=== PATIENT | female | born 1970 | race Caucasian/White ===

== ENCOUNTER 2018-01-25 17:29 | Inpatient (IN) | payer BC ==
[2018-01-25] MEDS ORDERED: MORPHINE 4 MG/ML SYR ONE (17:56)
[2018-01-25] MEDS ORDERED: ONDANSETRON 4 MG/2 ML VIAL ONE (17:56)
[2018-01-25] MEDS ORDERED: TETANUS & DIPHTHERIA TOX,ADULT 0.5 ML VIAL ONE (18:04)
[2018-01-25] MEDS ORDERED: CEFTRIAXONE/SWI 1gm 1 GM/10 ML SYR ONE (18:05)
[2018-01-25] MEDS ORDERED: MORPHINE 10 MG/ML VIAL ONE ×2 (18:10→18:42)
--- NOTE | 2018-01-25 18:12 | P.HP ---
Certification for Inpatient Patient admitted to: Inpatient With expected LOS: >2 Midnights Patient will require the following post-hospital care: None Practitioner: I am a practitioner with admitting privileges, knowledge of patient current condition, hospital course, and medical plan of care. Services: Services provided to patient in accordance with Admission requirements found in Title 42 Section 412.3 of the Code of Federal Regulations Patient History Date of Service: 01/25/18 Primary Care Provider: Dr. Berman; CULINARY INTERN-Dr. Parada Reason for admission: Right hand injury History of Present Illness: 47-year-old female presented emergency room with the right hand injury. The patient was working on a project at home utilizing would, glass and the table saw. An accident occurred causing major cuts to the right hand. Injury to the right thumb index middle finger and ring finger were noted. Multiple areas of skin were cut that different angles with differently years. Patient came to the emergency room for evaluation. The patient was evaluated in the emergency room. Due to the severity her injury plastic surgery was consulted. Plastic surgery plans to take the patient to the OR to irrigate and debride the multiple wounds along with closure. Surgery is planned for tomorrow. Plastic surgery recommended the patient be admitted by the hospitalist service. The patient has no prior medical condition. 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 She is currently being treated for this. Otherwise she takes no other medications. Allergies codeine Allergy (Verified 09/16/17 06:48) Anaphylaxis Home medications list reviewed: Yes Home Medications: Phentermine HCl 37.5 mg PO DAILY 08/07/17 - Past Medical/Surgical History Diabetic: Yes -: Precancer cells the bladder -: Hysterectomy Psychosocial/ Personal History: The patient is . She has several children. - Family History Family History: Reviewed- Non-Contributory - Social History Smoking Status: Never smoker Alcohol use: Yes CD- Drugs: No Caffeine use: Yes Place of Residence: Home Review of Systems General: As per HPI Eyes: Unremarkable ENT: Unremarkable Respiratory: Unremarkable Cardiovascular: Unremarkable Genitourinary: Unremarkable Musculoskeletal: As per HPI Integumentary: As per HPI Neurological: Unremarkable Lymphatics: Unremarkable Physical Examination - Physical Exam General: Alert, In no apparent distress, Oriented x3, Cooperative HEENT: Atraumatic, Normocephalic, PERRLA, Mucous membr. moist/pink Neck: Supple, No Thyromegaly Respiratory: Clear to auscultation bilaterally, Normal air movement Cardiovascular: Normal pulses, Regular rate/rhythm Gastrointestinal: Normal bowel sounds, Soft and benign, Non-distended, No tenderness, No masses, No rebound, No guarding Musculoskeletal: Other (Multiple lacerations noted to the right hand. Including the thumb, index, middle, and ring finger. Lacerations are at different angles and depth. 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 Will start IV antibiotic therapy. Will provide medication for pain. Await further recommendations from plastic surgery. Case discussed with ER physician who has spoken to plastic surgery. Patient will require irrigation and debridement of wounds along with closures. Qualifiers: Encounter type: initial encounter Qualified Code(s): S69.91XA - Unspecified injury of right wrist, hand and finger(s), initial encounter (2) Laceration of right hand with complication Current Visit: Yes Status: Acute Plan: As above Qualifiers: Encounter type: initial encounter Qualified Code(s): S61.411A - Laceration without foreign body of right hand, initial encounter Discharge Plan: Home Plan to discharge in: Greater than 2 days - Advance Directives Does patient have a Living Will: No Does patient have a Durable POA for Healthcare: No - Code Status/Comfort Care Code Status Assessed: Yes Time Spent Managing Pts Care (In Minutes): 55
--- NOTE | 2018-01-25 18:31 | EDPHYS ---
Physician Documentation [facility] Name: Nazia Alva Age: 47 yrs Sex: Female : 1970 Arrival Date: 01/25/2018 Time: 17:32 Bed 4 Private MD: ED Physician Dandy Perales HPI: 01/25 18:10 This 47 yrs old Female presents to ER via Ambulatory with complaints of gs Laceration To Hand. 18:10 The patient has a laceration related to: doing carpentry, from a power saw, occurred at home, and The type of wound is a puncture. The laceration(s) is(are) located on the right hand and dorsal aspect of middle phalanx of right ring finger and dorsal aspect of proximal phalanx of right middle finger and dorsal aspect of middle phalanx of right middle finger and dorsal aspect of middle phalanx of right index finger and dorsal aspect of distal phalanx of right thumb. Onset: The symptoms/episode began/occurred acutely, just prior to arrival. Associated signs and symptoms: Pertinent positives: deformity. The patient has not experienced similar symptoms in the past. The patient has not recently seen a physician. 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 - Social history:: Smoking status: Patient/guardian denies using tobacco. ROS: 18:10 All other systems are negative. gs Exam: 18:10 ENT: Nares patent. No nasal discharge, no septal abnormalities noted. Tympanic gs membranes are normal and external auditory canals are clear. Oropharynx with no redness, swelling, or masses, exudates, or evidence of obstruction, uvula midline. Mucous membranes moist. Cardiovascular: Regular rate and rhythm with a normal S1 and S2. No gallops, murmurs, or rubs. Normal PMI, no JVD. No pulse deficits. Respiratory: Lungs have equal breath sounds bilaterally, clear to auscultation and percussion. No rales, rhonchi or wheezes noted. No increased work of breathing, no retractions or nasal flaring. Abdomen/GI: Soft, non-tender, with normal bowel sounds. No distension or tympany. No guarding or rebound. No evidence of tenderness throughout. Back: No spinal tenderness. No costovertebral tenderness. Full range of motion. Neuro: Awake and alert, GCS 15, oriented to person, place, time, and situation. Cranial nerves II-XII grossly intact. Motor strength 5/5 in all extremities. Sensory grossly intact. Cerebellar exam normal. Normal gait. 18:10 Constitutional: The patient appears alert, awake. 18:17 Constitutional: The patient appears in obvious distress, severely distressed. gs 18:17 Musculoskeletal/extremity: ROM: limited active range of motion, limited passive range of motion, Pulses: are normal with no appreciated deficits, Sensation intact. 18:17 Skin: injury, laceration(s), multiple laceration 1-5 digits, thumb has large distal phalanx lacerations on flexor surface 2-5 extending to and through flexor tendons on those digits. Vital Signs: 17:33 BP 131 / 72; Pulse 87; Resp 18; Pulse Ox 100% on R/A; Weight 79.38 kg (R); Height 5 ft. lk1 10 in. (177.80 cm) (R); Pain 7/10; 18:18 BP 122 / 89; Pulse 88; Resp 17; Pulse Ox 100% on R/A; Pain 7/10; hb 18:33 BP 125 / 81; Pulse 97; Resp 26; Pulse Ox 100% on R/A; Pain 10/10; aj 18:51 BP 125 / 81; Pulse 91; Resp 22; Pulse Ox 100% on R/A; aj 17:33 Body Mass Index 25.11 (79.38 kg, 177.80 cm) lk1 MDM: 17:41 Patient medically screened. gs 18:17 Differential diagnosis: superficial laceration, tendon injury, vascular injury, gs fracture. Data reviewed: vital signs, nurses notes. Response to treatment: the patient's symptoms have mildly improved after treatment. Physician consultation: Alejandro Pate MD regarding consult, patient's condition, exact description of injuries and xray findings, and will see patient in inpatient room. 01/25 17:43 Order name: Hand Right 3 View XRAY; Complete Time: 18:43 01/25 18:34 Order name: CONS Physician Consult EDMS Administered Medications: 17:39 Drug: morphine 4 mg Route: IVP; Site: left antecubital; hb 18:46 Follow up: Response: Pain is unchanged, physician notified aj 17:40 Drug: Zofran 4 mg Route: IVP; Site: left antecubital; hb 18:46 Follow up: Response: No adverse reaction aj 17:50 Drug: Rocephin - (cefTRIAXone) 1 grams Route: IVPB; Infused Over: 30 mins; Site: left aj forearm; 18:47 Follow up: Response: No adverse reaction; IV Status: Completed infusion; IV Intake: 10mlaj 17:53 Drug: Tetanus-Diphtheria Toxoid Adult 0.5 ml {Food Safety Manager: [employer]. Exp: aj 03/04/2020. Lot #: [id number]. } Route: IM; Site: left deltoid; 18:47 Follow up: Response: No adverse reaction aj 17:54 Drug: morphine 8 mg Route: IVP; Site: left forearm; aj 18:48 Follow up: Response: Pain is unchanged, physician notified aj 18:20 Drug: morphine 8 mg Route: IVP; Site: left forearm; aj 18:48 Follow up: Response: Pain is unchanged, physician notified aj 18:34 Drug: TORadol 30 mg Route: IVP; Site: left antecubital; hb 18:48 Follow up: Response: Pain is unchanged, physician notified aj 18:46 Drug: fentaNYL (PF) 100 mcg Route: IVP; Site: left forearm; aj Disposition: 01/25/18 18:31 Hospitalization ordered by Brenden Askew for Inpatient Admission. Preliminary diagnosis are Displaced fracture of distal phalanx of right thumb, Laceration of flexor muscle, fascia and tendon of right middle finger at wrist and hand level, Laceration of intrinsic muscle, fascia and tendon of right index finger at wrist and hand level, Laceration of flexor muscle, fascia and tendon of right ring finger at wrist and hand level. - Bed requested for Telemetry/MedSurg (Inpatient). - Status is Inpatient Admission. fc - Condition is Stable. - Problem is new. - Symptoms are unchanged. UTI on Admission? No Signatures: Dispatcher [employer] Odilia Sotelo RN RN dw Myers, Amanda, RN RN aj Chretien, Felicia, RN RN Tierra King RN RN lk1 Jess Messina, RN RN hb Dandy Perales MD MD gs
--- NOTE | 2018-01-25 18:31 | ER ---
Nurse's Notes [facility] Name: Nazia Alva Age: 47 yrs Sex: Female : 1970 Arrival Date: 01/25/2018 Time: 17:32 Bed 4 Private MD: Diagnosis: Displaced fracture of distal phalanx of right thumb;Laceration of flexor muscle, fascia and tendon of right middle finger at wrist and hand level;Laceration of intrinsic muscle, fascia and tendon of right index finger at wrist and hand level;Laceration of flexor muscle, fascia and tendon of right ring finger at wrist and hand level Presentation: 01/25 17:32 Presenting complaint: Patient states: I ran my hand (right) into a table saw. lk1 Transition of care: patient was not received from another setting of care. Complicating Factors: There are no complicating factors for this patient. Onset of symptoms was January 25, 2018 at 17:00. Care prior to arrival: None. 17:32 Method Of Arrival: Ambulatory lk1 17:32 Acuity: DIPIKA 2 lk1 Triage Assessment: 17:33 General: Appears uncomfortable, Behavior is calm, cooperative, appropriate for age. lk1 Pain: Complains of pain in right hand Pain currently is 7 out of 10 on a pain scale. Injury Description: Laceration sustained to dorsal aspect of distal phalanx of right thumb, dorsal aspect of middle phalanx of right index finger, dorsal aspect of middle phalanx of right middle finger, dorsal aspect of proximal phalanx of right middle finger and dorsal aspect of middle phalanx of right ring finger is jagged, bleeding moderately. HAIR SPINNER: 17:33 LMP N/A - Hysterectomy lk1 Historical: - Allergies: 17:33 Codeine; lk1 - PMHx: 17:33 None; lk1 - PSHx: 17:33 Tubal ligation; Hysterectomy; lk1 - Immunization history:: Adult Immunizations up to date, Last tetanus immunization: unknown. - Social history:: Smoking status: Patient/guardian denies using tobacco. Screenin:40 Abuse screen: Denies threats or abuse. Denies injuries from another. Nutritional hb screening: No deficits noted. Tuberculosis screening: No symptoms or risk factors identified. Fall Risk None identified. Assessment: 18:33 General: Appears distressed, uncomfortable, Behavior is calm, cooperative, appropriate aj for age. Pain: Complains of pain in dorsal aspect of middle phalanx of right ring finger and dorsal aspect of proximal phalanx of right middle finger and dorsal aspect of middle phalanx of right middle finger and dorsal aspect of middle phalanx of right index finger and dorsal aspect of distal phalanx of right thumb Pain currently is 10 out of 10 on a pain scale. Neuro: Level of Consciousness is awake, alert, obeys commands, Oriented to person, place, time, situation. Respiratory: Airway is patent Respiratory effort is even, unlabored, Respiratory pattern is regular, symmetrical. Derm: Skin is intact, is healthy with good turgor, Skin is pink, warm \T\ dry. normal. Musculoskeletal: Reports pain in right hand. Injury Description: Avulsion sustained to palmar aspect of distal phalanx of right thumb and dorsal aspect of middle phalanx of right ring finger and dorsal aspect of proximal phalanx of right middle finger and dorsal aspect of middle phalanx of right middle finger and dorsal aspect of middle phalanx of right index finger and dorsal aspect of distal phalanx of right thumb. 19:41 Reassessment: No changes from previously documented assessment. Patient is alert, bb oriented x 3, equal unlabored respirations, skin warm/dry/pink. IV site intact. Vital Signs: 17:33 BP 131 / 72; Pulse 87; Resp 18; Pulse Ox 100% on R/A; Weight 79.38 kg (R); Height 5 ft. lk1 10 in. (177.80 cm) (R); Pain 7/10; 18:18 BP 122 / 89; Pulse 88; Resp 17; Pulse Ox 100% on R/A; Pain 7/10; hb 18:33 BP 125 / 81; Pulse 97; Resp 26; Pulse Ox 100% on R/A; Pain 10/10; aj 18:51 BP 125 / 81; Pulse 91; Resp 22; Pulse Ox 100% on R/A; aj 17:33 Body Mass Index 25.11 (79.38 kg, 177.80 cm) lk1 ED Course: 17:32 Patient arrived in ED. lk1 17:32 Triage completed. lk1 17:33 Dandy Perales MD is Attending Physician. gs 17:34 Arm band placed on right wrist. lk1 17:39 Inserted saline lock: 20 gauge in left forearm, using aseptic technique. Blood aj collected. Wound care: to laceration located on dorsal aspect of middle phalanx of right ring finger and dorsal aspect of proximal phalanx of right middle finger and dorsal aspect of middle phalanx of right middle finger and dorsal aspect of middle phalanx of right index finger and dorsal aspect of distal phalanx of right thumb was dressed with wet gauze. 18:19 Hand Right 3 View XRAY In Process Unspecified. EDMS 18:27 Brenden Askew DO is Hospitalizing Provider. gs 18:33 Margarita Durant, LILIAN is Primary Nurse. aj 18:33 Patient has correct armband on for positive identification. Bed in low position. Call aj light in reach. Side rails up X2. NIBP on. 18:33 Dressings: Kerlix X 1; right hand 4X4s X 1; right hand. Wound care: to laceration aj located on right hand was Dressed in Betadine soaked gauze and wrapped in kerlix Patient tolerated poorly. 19:21 No provider procedures requiring assistance completed. Patient admitted, IV remains in bb place. 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 Exp: aj 03/04/2020. Lot #: [id number]. } Route: IM; Site: left deltoid; 18:47 Follow up: Response: No adverse reaction aj 17:54 Drug: morphine 8 mg Route: IVP; Site: left forearm; aj 18:48 Follow up: Response: Pain is unchanged, physician notified aj 18:20 Drug: morphine 8 mg Route: IVP; Site: left forearm; aj 18:48 Follow up: Response: Pain is unchanged, physician notified aj 18:34 Drug: TORadol 30 mg Route: IVP; Site: left antecubital; hb 18:48 Follow up: Response: Pain is unchanged, physician notified aj 18:46 Drug: fentaNYL (PF) 100 mcg Route: IVP; Site: left forearm; aj Intake: 18:47 IV: 10ml; Total: 10ml. aj Outcome: 18:31 Decision to Hospitalize by Provider. 19:22 Admitted to Med/surg 19:22 Condition: stable 19:22 Instructed on the need for admit. 19:41 Admitted to accompanied by tech, via stretcher, with chart, Report called to Yesika Cole CANAL BOAT OPERATOR 19:51 Patient left the ED. Signatures: Dispatcher [employer] EDMargarita Bingham RN RN Viri Lucero, RN RN Tabby Elias RN Tierra Mahmood RN RN lk1 Jess Messina RN RN Dandy Perales MD MD
--- NOTE | 2018-01-25 18:40 | RAD REPORT ---
EXAM DESCRIPTION: RAD - Hand Right 3 View - 01/25/2018 6:20 pm CLINICAL HISTORY: Trauma, pain COMPARISON: None. FINDINGS: Soft tissue laceration with comminuted fracture distal phalanx of the first digit seen. Se cond digit is not well assessed due to flexed position without a gross fracture seen. Fracture also s een involving the distal aspect of the middle phalanx of the third finger with comminution present.
[2018-01-25] MEDS ORDERED: KETOROLAC 30 MG/ML INJ ONE (18:49)
[2018-01-25] MEDS ORDERED: FENTANYL CITR 100 MCG/2 ML ONE (19:04)
[2018-01-25] MEDS ORDERED: ACETAMINOPHEN 500 MG TAB PO PRN (20:27)
[2018-01-25] MEDS ORDERED: TRAMADOL HCL 50 MG TAB PO PRN (20:27)
[2018-01-25] MEDS: MORPHINE 2 MG/ML SYR IV PRN (21:01)
[2018-01-25] MEDS: ONDANSETRON 4 MG/2 ML VIAL IV PRN (21:03)
[2018-01-25 23:09] LABS: Urine Appearance CLEAR; Urine Bilirubin NEGATIVE (NEG); Urine Blood NEGATIVE (NEG); Urine Color YELLOW; Urine Glucose NEGATIVE (NEG); Urine Protein NEGATIVE (NEG); Urine Specific Gravity 1.025 (1.005-1.030); Urine Urobilinogen 0.2 mg/dL (0.2-1.0); Urine pH 6.5 (5.0-7.0)
[2018-01-25 23:17] LABS: Urine Microscopic Reflex NO UMIC
[2018-01-26] MEDS: MORPHINE 2 MG/ML SYR IV PRN ×3 (01:20→09:22)
[2018-01-26 05:20] LABS: Absolute Lymphocytes (CBC) 2.7 K/uL (0.7-4.9); Absolute Monocytes 0.7 K/uL (0.1-1.3); Absolute Neutrophil 4.5 K/uL (1.8-8.0); Basophils % 0.5 % (0-1.3); Eosinophils % 1.2 % (0-4.4); Hematocrit 37.8 % (36.0-45.0); Lymphocytes % 34.1 % (15.3-44.8); MCH 31.4 pg (27.0-35.0); MCV 92.5 fL (80-100); MPV 7.8 fL (7.6-11.3); Monocytes % 8.3 % (3.3-12.3); RBC Red Blood Cell Count 4.09 M/uL (3.86-4.86)
[2018-01-26] MEDS: ONDANSETRON 4 MG/2 ML VIAL IV PRN (05:34)
[2018-01-26 05:39] LABS: Magnesium 2.1 mg/dL (1.8-2.5); Potassium 4.6 mEq/L (3.6-5.0)
[2018-01-26] MEDS ORDERED: CEFTRIAXONE 1 GM/NS 50 ML 1 GM/50 ML BAG IV SCH (09:00)
[2018-01-26] MEDS ORDERED: CEFTRIAXONE/SWI 1gm 1 GM/10 ML SYR IV SCH (09:00)
[2018-01-26] MEDS ORDERED: MORPHINE 4 MG/ML SYR IV PRN (09:33)
[2018-01-26] MEDS: HYDROCODONE/APAP 7.5/325 MG TAB PO PRN ×2 (11:24→17:05)
[2018-01-26] MEDS ORDERED: Ringers Lactate 1,000 ML IV ONE ×2 (13:38→15:59)
[2018-01-26] MEDS ORDERED: PROPOFOL 200 MG/20 ML VIAL IV ONE (13:39)
[2018-01-26] MEDS ORDERED: MIDAZOLAM HCL 2 MG/2 ML INJ ONE (13:39)
[2018-01-26] MEDS ORDERED: FENTANYL CITR 100 MCG/2 ML ONE (13:39)
[2018-01-26] MEDS ORDERED: LIDOCAINE 2% MPF 5 ML VIAL ONE (13:39)
[2018-01-26] MEDS ORDERED: CEFTRIAXONE 1 GM/NS 50 ML 1 GM/50 ML BAG IV ONE (13:59)
[2018-01-26] MEDS ORDERED: CEFTRIAXONE/SWI 1gm 1 GM/10 ML SYR IV ONE (14:00)
[2018-01-26] MEDS ORDERED: MINERAL OIL, LITE 10 ML VIAL ONE (14:02)
[2018-01-26] MEDS ORDERED: DEXAMETHASONE 10 MG/ML VIAL ONE (14:32)
[2018-01-26] MEDS ORDERED: ONDANSETRON 4 MG/2 ML VIAL ONE (14:32)
--- NOTE | 2018-01-26 16:15 | P.PN ---
Subjective Date of Service: 01/26/18 Primary Care Provider: Dr. Berman; OIL HEATER OPERATOR-Dr. Parada Chief Complaint: Right hand injury Subjective: Doing well (Pain appears controlled.) Physical Examination - Vital Signs Temperature: 97.8 F Blood Pressure: 114/70 Pulse: 72 Respirations: 16 Pulse Ox (%): 100 - Physical Exam General: Alert, In no apparent distress, Oriented x3, Cooperative HEENT: Atraumatic, Mucous membr. moist/pink Neck: Supple, No Thyromegaly Respiratory: Clear to auscultation bilaterally, Normal air movement Cardiovascular: Normal pulses, Regular rate/rhythm Gastrointestinal: Normal bowel sounds, Soft and benign, Non-distended, No masses , No rebound, No guarding Musculoskeletal: Other (Right hand bandaged) Neurological: Normal speech, Normal strength at 5/5 x4 extr, Normal tone - Studies Medications List Reviewed: Yes Assessment & Plan - Problems (Diagnosis) (1) Injury of right hand including fingers Onset Date: 01/26/18 Current Visit: Yes Status: Acute Plan: Pain seems to be well controlled. Patient be taken to the OR for treatment. X- ray shows multiple fractures is well. Await further recommendations from plastic surgery. Qualifiers: Encounter type: initial encounter Qualified Code(s): S69.91XA - Unspecified injury of right wrist, hand and finger(s), initial encounter (2) Laceration of right hand with complication Onset Date: 01/26/18 Current Visit: Yes Status: Acute Plan: As above Qualifiers: Encounter type: initial encounter Qualified Code(s): S61.411A - Laceration without foreign body of right hand, initial encounter (3) Fractures Current Visit: Yes Status: Acute Plan: Patient be taken to the OR for repair. Discharge Plan: Home Plan to discharge in: Greater than 2 days Time Spent Managing Pts Care (In Minutes): 55
--- NOTE | 2018-01-26 17:33 | RAD REPORT ---
EXAM DESCRIPTION: RAD - Hand Right 2 View - 01/26/2018 4:01 pm FINDINGS: Right hand fluoroscopy performed. Portable C-arm views were obtained during fluoroscopic assisted placement of fracture fixation sarah mccarty. No unexpected finding.
--- NOTE | 2018-01-26 18:23 | P.DS ---
Admission Date: 01/25/18 Discharge Date: 01/26/18 Primary Care Provider: Dr. Berman; DYNAMICS AX TECHNICAL ARCHITECT-Dr. Parada Disposition: ROUTINE DISCHARGE Reason for Admission: Right hand injury Consultations: Plastic surgery-Dr. Pate - Problems (1) Injury of right hand including fingers Onset Date: 01/26/18 Current Visit: Yes Status: Acute Qualifiers: Encounter type: initial encounter Qualified Code(s): S69.91XA - Unspecified injury of right wrist, hand and finger(s), initial encounter (2) Laceration of right hand with complication Onset Date: 01/26/18 Current Visit: Yes Status: Acute Qualifiers: Encounter type: initial encounter Qualified Code(s): S61.411A - Laceration without foreign body of right hand, initial encounter (3) Fractures Current Visit: Yes Status: Acute Brief History of Present Illness: 47-year-old female presented emergency room with the right hand injury. The patient was working on a project at home utilizing would, glass and the table saw. An accident occurred causing major cuts to the right hand. Injury to the right thumb index middle finger and ring finger were noted. Multiple areas of skin were cut that different angles with differently years. Patient came to the emergency room for evaluation. The patient was evaluated in the emergency room. Due to the severity her injury plastic surgery was consulted. Plastic surgery plans to take the patient to the OR to irrigate and debride the multiple wounds along with closure. Surgery is planned for tomorrow. Plastic surgery recommended the patient be admitted by the hospitalist service. The patient has no prior medical condition. 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 She is currently being treated for this. Otherwise she takes no other medications. Hospital Course: During his stay the patient was evaluated by plastic surgery. Patient was taken to the operating room for irrigation and debridement of lacerations. Open reduction and internal fixation of the fractures were done. Patient stable after surgery. Patient will be discharged home. Patient will follow up with plastic surgery tomorrow at 2:00 p.m.. Plastic surgery provided medication -Bactrim and tramadol at discharge. Vital Signs/Physical Exam: Temp Pulse Resp BP Pulse Ox 97.9 F 71 16 118/66 100 01/26/18 16:22 01/26/18 16:22 01/26/18 16:22 01/26/18 16:22 01/26/18 16:15 General: Alert, In no apparent distress, Oriented x3, Cooperative HEENT: Atraumatic Neck: Supple Respiratory: Clear to auscultation bilaterally, Normal air movement Cardiovascular: Normal pulses, Regular rate/rhythm Gastrointestinal: Normal bowel sounds, Soft and benign, Non-distended Musculoskeletal: Other (Right hand bandaged) Neurological: Normal speech, Normal strength at 5/5 x4 extr, Normal tone, Normal affect Laboratory Data at Discharge: WBC 8.0 K/uL (4.3-10.9) 01/26/18 04:22 Hgb 12.9 g/dL (12.0-15.0) 01/26/18 04:22 Hct 37.8 % (36.0-45.0) 01/26/18 04:22 Plt Count 293 K/uL (152-406) 01/26/18 04:22 Sodium 140 mEq/L (135-145) 01/26/18 04:22 Potassium 4.6 mEq/L (3.6-5.0) 01/26/18 04:22 BUN 14 mg/dL (6-20) 01/26/18 04:22 Creatinine 0.75 mg/dL (0.44-1.00) 01/26/18 04:22 Glucose 92 mg/dL (65-120) 01/26/18 04:22 Magnesium 2.1 mg/dL (1.8-2.5) 01/26/18 04:22 Home Medications: Sulfamethoxazole/Trimethoprim [Bactrim Ds Tablet] 1 each PO Q12HR #20 tablet 01/10 Tramadol HCl [Ultram] 50 mg PO Q4HR PRN #30 tablet 01/26/18 New Medications: Sulfamethoxazole/Trimethoprim [Bactrim Ds Tablet] 1 each PO Q12HR #20 tablet Tramadol HCl [Ultram] 50 mg PO Q4HR PRN #30 tablet PRN Reason: Pain Patient Discharge Instructions: 1. Patient will follow up with plastic surgery tomorrow at 2:00 p.m.. 2. Patient will continue with antibiotic-Bactrim and pain medication-tramadol as prescribed by plastic surgery. Diet: Regular Activity: Ad roibn Time spent managing pt's care (in minutes): 55
--- NOTE | 2018-01-27 08:08 | OP ---
Surgeon: Alejandro Pate MD [employer] Sander: Arie. Preoperative Diagnosis: Table saw injury to the right hand. Postoperative Diagnoses: Fracture of the distal phalanx of the right thumb with open wound, fracture of the PIP joint of the right index finger of both the proximal phalanx and middle phalanx with laceration of extensor tendon, central slip and ulnar conjoined fracture of the middle phalanx of the middle at the AP joint, and extensor tendon laceration of right ring finger at the PIP , laceration of right ring finger. Procedure Performed: Debridement of skin, subcutaneous tissue, bone of the right thumb. Ablation and nail bed of the right thumb. Flap closure of right thumb. Fusion of the right middle finger DIP joint. Debridement of skin and subcutaneous tissue with bone and flap closure. Debridement of skin and subcutaneous tissue of the right ring finger with simple closure 3 cm wound. Debridement of skin and subcutaneous tissue of the right index finger. PIP joint reconstruction with articular graft harvest from the right middle finger distal phalanx. The extensor tendon repair with central slip repair of conjoined tendon and radial aspect of the right index finger and splint. Anesthesia: General. Procedure In Detail: After satisfactory induction of general anesthesia, the hand was prepped with Betadine scrub, Betadine paint, dry sterile drapes applied in the usual manner. Arm was elevated, exsanguinated with an Esmarch, tourniquet was inflated to 250 mmHg. Hand placed on a [place] table. Thumb was approached first. Skin and subcutaneous tissue debrided as needed. The patient needed amputation of the bone. There was only a skin bridge underneath the nail plate. Nail plate was removed. All the nail bed was resected and then flaps were outlined to be later closed. Attention was turned to the index finger. The index finger had a laceration at the PIP joint. The finger is held in about 90 degrees of flexion saw cut through and the articular cartilage missing from the both sides of the PIP joint involving both the proximal phalanx and middle phalanx. The cartilage missing predominantly on the proximal phalanx. Extensor tendon was transected and the radial conjoined tendon was also lacerated. This was all debrided. Attention was turned to the middle finger. The laceration was at the distal phalanx level. The bone was fractured and missing on the ulnar portion of the middle phalanx and the saw was used to prepare the bone for fusion . The cartilage was taken off the distal interphalangeal joint on the distal phalanx. Then, the ring finger had a laceration over the PIP joint of the superficial to bone. This was debrided. All wounds were then jet lavage, irrigated. Attention then began with the ring finger . 4-0 prolene vertical mattresses were placed. Attention was turned to the middle finger. The saw was used to scrub the bone both proximally distally at the DIP. The cartilage removed. The distal phalanx was not used, but the cartilage was removed from the middle phalanx on the ulnar 1/ 2 was later split and used for the other digit. This wound underwent then fusion. A 0.045 K-wire was passed from proximal to distal of the distal phalanx. Then using the DIP joint. There is no tendon repair. Attention then turned to the index finger. This was most complex one. The soft tissue retracted. The cartilage harvested from the middle finger. It was then cut in half and then recontoured. A 0.028 K-wire were placed from distal ulnar impaling the proximal radial and the other one was placed K-wire on the other half of the PIP joint with K-wire 0.028 from distal radial to proximal ulnar. Then full extension joint, although cartilage missing from the distal portion of the PIP joint. The joint was still stable and there was very little contact with a piece missing. The patient had extensor tendon repair with 4-0 Prolene simple sutures horizontal mattress. The conjoined tendon was repaired with 4-0 Prolene as well . Attention was turned to the thumb. The wound was closed by advancing the flaps . Tourniquet released. Electrocautery used for hemostasis. Wounds were closed with simple sutures of 4-0 Prolene vertical mattress. Dressed with Xeroform, 2 inch Oren, Kerlix and a splint holding the wrist in 10 degrees of dorsiflexion . The patient tolerated the procedure well and returned to Recovery. WESTON/GEETHA Voice ID: [id number] Report ID: [id number] KAREEN
== END 2018-01-26 19:18 | disposition home or self-care (01) | DRG 513 ==
LOC: ER 17:29 → ERHOLD 18:33 → 2ND 19:25
PROVIDERS: ADMIT Family Medicine; ATTEND Family Medicine
PROC: 0RGW04Z Fusion of Right Finger Phalangeal Joint with Internal Fixation Device, Open Approach (ICD-10-PCS; 2018-01-26)
PROC: 0LU707Z Supplement Right Hand Tendon with Autologous Tissue Substitute, Open Approach (ICD-10-PCS; 2018-01-26)
PROC: 0LB70ZZ Excision of Right Hand Tendon, Open Approach (ICD-10-PCS; 2018-01-26)
PROC: 0PBT0ZZ Excision of Right Finger Phalanx, Open Approach (ICD-10-PCS; 2018-01-26)
PROC: 0HBQXZZ Excision of Finger Nail, External Approach (ICD-10-PCS; 2018-01-26)
PROC: 0HQFXZZ Repair Right Hand Skin, External Approach (ICD-10-PCS; 2018-01-26)
PROC: 0X6L0Z3 Detachment at Right Thumb, Low, Open Approach (ICD-10-PCS; principal; 2018-01-26 14:30)
PROC: 0LB70ZZ Excision of Right Hand Tendon, Open Approach (ICD-10-PCS; 2018-01-26 14:30)
DX: S62.521B Displaced fracture of distal phalanx of right thumb, initial encounter for open fracture (principal); S66.320A Laceration of extensor muscle, fascia and tendon of right index finger at wrist and hand level, initial encounter; S66.322A Laceration of extensor muscle, fascia and tendon of right middle finger at wrist and hand level, initial encounter; S62.610B Displaced fracture of proximal phalanx of right index finger, initial encounter for open fracture; S62.620B Displaced fracture of middle phalanx of right index finger, initial encounter for open fracture; S62.632B Displaced fracture of distal phalanx of right middle finger, initial encounter for open fracture; S61.214A Laceration without foreign body of right ring finger without damage to nail, initial encounter; W31.2XXA Contact with powered woodworking and forming machines, initial encounter; Y93.89 Activity, other specified; Y92.019 Unspecified place in single-family (private) house as the place of occurrence of the external cause
CPT/HCPCS: 36415; 80048; 81003; 83735; 85025; 88305; 88311; 90714; 99285; J0696; J1100; J2250; J2270; J2405; J3010